=== PATIENT | male | born 1980 | race African-American/Black ===

== ENCOUNTER 2016-11-15 21:17 | Emergency (ER) | payer OTHER | END 2016-11-15 23:25 | disposition left against medical advice (07) | LOC: ER 21:17 | DX: Z53.21 Procedure and treatment not carried out due to patient leaving prior to being seen by health care provider (principal) ==

== ENCOUNTER 2016-11-22 21:16 | Emergency (ER) | payer OTHER | END 2016-11-22 23:12 | disposition home or self-care (01) | LOC: ER 21:16 | DX: B35.3 Tinea pedis (principal); M79.671 Pain in right foot; F17.210 Nicotine dependence, cigarettes, uncomplicated ==